=== PATIENT | male | born 1955 | race Caucasian/White ===

== ENCOUNTER → 2020-01-23 | Emergency (ER) | payer MEDICARE, OTHER ==
[~2020-01-23] VITALS: Ht 167.6 cm; Wt 81.8 kg
[~2020-01-23] MED LIST: ACET-66 PO; ASPI81TA39 PO; ATOR40TA28 PO; CARV12 PO; CHL25 PO; CYCL10 PO; DOXYCYCLINE HYCLATE 100 MG TABLET PO ONE; FLUO-191 PO; HYDROCODONE/ACETAMINOPHEN 5-325 MG TABLET PO ONE; LIDOCAINE 1%/EPI 1:200,000/PF 10 ML VIAL INJ ONE; LISI-662 PO; POVIDONE-IODINE 10% 15 ML SOLUTION UD TP ONE; TRAZ-257 PO
[2020-01-23 15:07] VITALS: BP 152/109
== END | disposition home or self-care (01) ==
LOC: EMS 13:35
DX: L02.413 Cutaneous abscess of right upper limb (principal); L03.113 Cellulitis of right upper limb; I10 Essential (primary) hypertension; E78.00 Pure hypercholesterolemia, unspecified; F17.210 Nicotine dependence, cigarettes, uncomplicated; F12.90 Cannabis use, unspecified, uncomplicated; F19.90 Other psychoactive substance use, unspecified, uncomplicated; Z79.899 Other long term (current) drug therapy; Z79.82 Long term (current) use of aspirin
CPT/HCPCS: 10060; 99283; J3490

== ENCOUNTER 2021-07-06 22:08 | Inpatient (IN) | payer MEDICARE, OTHER ==
[~2021-07-06] VITALS: Ht 165.1 cm; Wt 82.0 kg
[~2021-07-06 22:08] MED LIST changes: +ACET-3385 PO; -ACET-66 PO; -CYCL10 PO; +CYCL10TA17 PO; -DOXYCYCLINE HYCLATE 100 MG TABLET PO ONE; -HYDROCODONE/ACETAMINOPHEN 5-325 MG TABLET PO ONE; -LIDOCAINE 1%/EPI 1:200,000/PF 10 ML VIAL INJ ONE; -LISI-662 PO; +LISI-894 PO; -POVIDONE-IODINE 10% 15 ML SOLUTION UD TP ONE
[2021-07-06] MEDS ORDERED: CLOP75TA60 PO (22:53)
[2021-07-06] MEDS ORDERED: QUET100T PO (22:53)
[2021-07-06] MEDS ORDERED: TRAZ-186 PO (22:53)
[2021-07-06 23:05] LABS: EOSINOPHILS % (AUTO) 1.5 % (1.0-6.0); HEMATOCRIT 34.4 % (41-53); HEMOGLOBIN 12.1 g/dL (13.5-17.5); LYMPHOCYTES # (AUTO) 1.3 K/uL (1.0-4.8); MEAN CORPUSCULAR HEMOGLOBIN 34.1 pg (26.0-34.0); MEAN CORPUSCULAR HGB CONC 35.2 G/dL (31.0-37.0); MEAN CORPUSCULAR VOLUME 97 fL (80-100); MONOCYTES # (AUTO) 0.3 K/uL (0.1-1.0); NEUTROPHILS # (AUTO) 3.6 K/uL (1.8-7.7); NEUTROPHILS % (AUTO) 67.5 % (40.0-70.0); PLATELET COUNT (AUTO) 151 K/uL (150-450); RED BLOOD CELL COUNT(AUTO) 3.54 MIL/uL (4.50-5.90); RED CELL DISTRIBUTION WIDTH 14.5 % (11.5-14.5)
[2021-07-06 23:15] LABS: CALCIUM, TOTAL 8.6 mg/dL (8.8-10.5); CREATININE 1.3 mg/dL (0.60-1.30); POTASSIUM 3.1 mmol/L (3.5-5.1)
[2021-07-06] MEDS: ONDANSETRON HCL 4 MG/2 ML VIAL IVP PRN (23:18)
[2021-07-06] MEDS: HEPARIN SODIUM,PORCINE 5,000 UNITS/ML VIAL SQ SCH (23:18)
[2021-07-06] MEDS: ACETAMINOPHEN 325 MG TABLET PO PRN (23:18)
[2021-07-06] MEDS ORDERED: POTASSIUM CHL 10 MEQ/WATER 50 ML IV PRN (23:30)
[2021-07-06] MEDS ORDERED: POTASSIUM CHLORIDE 20 MEQ ER TABLET PO PRN (23:30)
[2021-07-07 01:56] LABS: COVID AG,FIA SOURCE NASAL SWAB
[2021-07-07 03:03] VITALS: BP 132/80
[2021-07-07] MEDS: ACETAMINOPHEN 325 MG TABLET PO PRN (04:29)
[2021-07-07 04:44] LABS: AMPHET/METH SCREEN,URINE NEGATIVE (NEGATIVE); BARBITURATE SCREEN, URINE NEGATIVE (NEGATIVE); BENZODIAZEPINES SCREEN,URINE NEGATIVE (NEGATIVE); CANNABINOID SCREEN,URINE NEGATIVE (NEGATIVE); COCAINE SCREEN,URINE NEGATIVE (NEGATIVE); METHADONE SCREEN, URINE NEGATIVE (NEGATIVE); OPIATE SCREEN,URINE POSITIVE (NEGATIVE)
[2021-07-07 04:48] LABS: PHENCYCLIDINE SCREEN,URINE NEGATIVE (NEGATIVE)
[2021-07-07] MEDS ORDERED: INFLUENZA VIRUS VACCINE QVS 2021-22 (6MO+)/PF 60 MCG/0.5 ML SYRINGE IM. ONE (05:15)
[2021-07-07] MEDS ORDERED: PNEUMOCOCCAL VACCINE POLYVALENT 0.5 ML VIAL [PPSV23] IM. ONE (05:15)
[2021-07-07 08:25] VITALS: BP 111/71
[2021-07-07] MEDS: DOCUSATE SODIUM 100 MG CAPSULE PO SCH ×2 (08:27→20:24)
[2021-07-07] MEDS: ONDANSETRON HCL 4 MG/2 ML VIAL IVP PRN ×2 (08:28→18:38)
[2021-07-07] MEDS: HEPARIN SODIUM,PORCINE 5,000 UNITS/ML VIAL SQ SCH ×2 (08:28→16:23)
[2021-07-07] MEDS: FAMOTIDINE 20 MG TABLET PO SCH (08:28)
[2021-07-07] MEDS: HYDROCODONE/ACETAMINOPHEN 5-325 MG TABLET PO PRN ×2 (10:56→18:38)
[2021-07-07 12:18] VITALS: BP 114/76
[2021-07-07 16:35] VITALS: BP 114/67
[2021-07-07 19:22] VITALS: BP 130/65
[2021-07-08] MEDS: HYDROCODONE/ACETAMINOPHEN 5-325 MG TABLET PO PRN ×3 (00:19→19:59)
[2021-07-08] MEDS: ONDANSETRON HCL 4 MG/2 ML VIAL IVP PRN ×3 (00:19→19:59)
[2021-07-08] MEDS: HEPARIN SODIUM,PORCINE 5,000 UNITS/ML VIAL SQ SCH ×3 (00:24→16:08)
[2021-07-08 00:43] VITALS: BP 110/82
[2021-07-08 05:34] VITALS: BP 120/76
[2021-07-08 07:42] VITALS: BP 140/90
[2021-07-08 07:57] LABS: CREATININE 1.45 mg/dL (0.60-1.30); POTASSIUM 4.1 mmol/L (3.5-5.1)
[2021-07-08] MEDS: DOCUSATE SODIUM 100 MG CAPSULE PO SCH ×2 (08:08→19:59)
[2021-07-08] MEDS: FAMOTIDINE 20 MG TABLET PO SCH (08:08)
[2021-07-08 11:24] VITALS: BP 119/76
[2021-07-08 15:26] VITALS: BP 130/86
[2021-07-08] MEDS: METOPROLOL TARTRATE 25 MG TABLET PO SCH (20:00)
[2021-07-08 20:09] VITALS: BP 130/74
[2021-07-09] MEDS: HEPARIN SODIUM,PORCINE 5,000 UNITS/ML VIAL SQ SCH ×2 (00:11→08:04)
[2021-07-09 00:36] VITALS: BP 134/79
[2021-07-09] MEDS: HYDROCODONE/ACETAMINOPHEN 5-325 MG TABLET PO PRN ×2 (02:14→08:04)
[2021-07-09] MEDS: ONDANSETRON HCL 4 MG/2 ML VIAL IVP PRN (02:14)
[2021-07-09 04:37] VITALS: BP 161/96
[2021-07-09] MEDS: FAMOTIDINE 20 MG TABLET PO SCH (08:04)
[2021-07-09] MEDS: METOPROLOL TARTRATE 25 MG TABLET PO SCH (08:04)
[2021-07-09] MEDS: DOCUSATE SODIUM 100 MG CAPSULE PO SCH (08:04)
[2021-07-09 08:11] VITALS: BP 143/93
[2021-07-09 08:21] LABS: BASOPHILS % (AUTO) 1.1 % (0.0-2.0); EOSINOPHILS % (AUTO) 2.9 % (1.0-6.0); HEMOGLOBIN 11.9 g/dL (13.5-17.5); LYMPHOCYTES # (AUTO) 1.4 K/uL (1.0-4.8); LYMPHOCYTES % (AUTO) 32.6 % (22.0-44.0); MEAN CORPUSCULAR HEMOGLOBIN 33.9 pg (26.0-34.0); MEAN CORPUSCULAR HGB CONC 33.9 G/dL (31.0-37.0); MEAN CORPUSCULAR VOLUME 100 fL (80-100); MONOCYTES # (AUTO) 0.4 K/uL (0.1-1.0); MONOCYTES % (AUTO) 10.2 % (2.0-9.0); NEUTROPHILS # (AUTO) 2.3 K/uL (1.8-7.7); NEUTROPHILS % (AUTO) 53.2 % (40.0-70.0); PLATELET COUNT (AUTO) 123 K/uL (150-450); RED CELL DISTRIBUTION WIDTH 15.1 % (11.5-14.5)
[2021-07-09 08:23] LABS: ANION GAP 10 mmol/L (8-16); CARBON DIOXIDE 27 mmol/L (22-29); CHLORIDE 99 mmol/L (98-107); CREATININE 1.18 mg/dL (0.60-1.30); GLOMERULAR FILTR. RATE CALC > 60 mL/min (>60); GLUCOSE,RANDOM 93 mg/dL (70-110); POTASSIUM 4.3 mmol/L (3.5-5.1); SODIUM SERUM 136 mmol/L (136-145); UREA NITROGEN, BLOOD 14 mg/dL (7-18)
[2021-07-09] MEDS ORDERED: FUROSEMIDE 20 MG TABLET PO SCH (09:00)
[2021-07-09] MEDS ORDERED: FURO20 PO (10:01)
[2021-07-09 11:34] VITALS: BP 119/88
== END 2021-07-09 13:35 | disposition home or self-care (01) | DRG 313 ==
LOC: EMS 22:15 → 5S 07-07 01:00
PROVIDERS: ADMIT Internal Medicine; ATTEND Internal Medicine
DX: R07.89 Other chest pain (principal); F19.10 Other psychoactive substance abuse, uncomplicated; I25.10 Atherosclerotic heart disease of native coronary artery without angina pectoris; E78.00 Pure hypercholesterolemia, unspecified; I50.9 Heart failure, unspecified; F17.210 Nicotine dependence, cigarettes, uncomplicated; Z20.822 Contact with and (suspected) exposure to COVID-19; F31.9 Bipolar disorder, unspecified; Z98.61 Coronary angioplasty status
CPT/HCPCS: 80048; 83880; 84132; 84484; 85025; 90686; 90732; 93005; 93306; 99285; G0378; J1644; J2405